=== PATIENT | female | born 1970 | race Caucasian/White ===

== ENCOUNTER 2020-01-30 19:11 | Emergency (ER) | payer OTHER ==
[~2020-01-30] VITALS: Ht 170.2 cm; Wt 114.7 kg
--- NOTE | 2020-01-30 19:53 | NUR ---
pt resting in gurney, placed on all monitors, icv placved, labs to be drawn, cvest cva cvomplete, erp at bedside
--- NOTE | 2020-01-30 19:55 | NUR ---
UNABLE TO GET LABS FROM IV, NO BLOOD RETURN, LAB CALLED, SOMEONE COMING TO DRAW
[2020-01-30 20:21] LABS: ALBUMIN 3.5 g/dL (3.4-5.0); ANION GAP 5 mmol/L (5-15); BASOPHILS % (AUTO) 1 % (0-1); CALCIUM 8.7 mg/dL (8.5-10.1); CHLORIDE 113 mmol/L (98-107); CREATININE 0.91 mg/dL (0.55-1.02); EOSINOPHILS % (AUTO) 4 % (1-7); LYMPHOCYTES % (AUTO) 29 % (22-44); MEAN CORPUSCULAR HEMOGLOBIN 31.3 pg (27.0-34.8); MEAN CORPUSCULAR HGB CONC 34.4 g/dL (32.4-35.8); MEAN PLATELET VOLUME 8.6 fL (7.4-10.4); MONOCYTES % (AUTO) 7 % (2-9); NEUTROPHILS % (AUTO) 59 % (42-75); PLATELET COUNT 237 x10^3/uL (130-400); RED BLOOD COUNT 4.41 x10^6/uL (3.82-5.3); RED CELL DISTRIBUTION WIDTH 13.3 % (9.6-15.2)
[2020-01-30 20:24] LABS: MD NO; TROPONIN I < 0.015 ng/mL (0.000-0.045)
--- NOTE | 2020-01-30 20:57 | NUR ---
PT RESTING IN GURNEY, STATES BEING UNCOMFORTABLE, ERP AT BEDSIDE FOR RECHECK
[2020-01-30] MEDS ORDERED: KETOROLAC 30 MG/1 ML ONE (21:06)
[2020-01-30] MEDS ORDERED: KETOROLAC 30 MG/1 ML IVPush ONE (21:30)
--- NOTE | 2020-01-30 21:34 | NUR ---
ERP AT BEDSIDE
[2020-01-30 21:46] VITALS: BP 132/83
== END 2020-01-30 22:05 | disposition home or self-care (01) ==
LOC: ED 21:40
DX: R07.89 Other chest pain (principal); R94.31 Abnormal electrocardiogram [ECG] [EKG]; R51.9 Headache, unspecified
CPT/HCPCS: 36415; 71045; 80048; 82040; 84484; 85025; 85379; 93005; 96374; 99285; J1885